=== PATIENT | male | born 2000 | race Caucasian/White ===

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

== ENCOUNTER 2024-05-26 12:58 | Outpatient (AMB) | payer OTHER, SELFPAY ==
--- NOTE | 2024-05-26 13:01 | A.OFFPC_ITS ---
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 Required: No Allergies Penicillins [PENICILLINS] Allergy (Unknown, Verified 05/26/24 13:28) HIVES SEASONAL ALLERGIES Allergy (Unknown, Uncoded 05/26/24 13:28) COUGH, NASAL CONGESTION Medication List - Last Reconciled 05/26/24 by Simba Le CNP albuterol 90 mcg/actuation mcg inhalation mometasone 100 mcg/actuation (Asmanex HFA) 1 inh inhalation BID Tobacco use date assessed: 05/26/24 Dental Screening Dental Screen Date: 05/26/24 Did you have a dental visit in the last 12 months?: Yes Did you have a dental problem in the last 6 months where you did not have access to dental care?: No Was dental information given to patient?: Patient has dentist HPI HPI Comments History of Present Illness Details 23-year-old male presents the establish care. Prior PCP? - [facility] Last office visit/CPE/labs - About a year ago Acute issue(s) - None Medications - Albuterol inhaler 2 puffs every 4 hour s as needed - Asmanex 1 puff twice daily Past Medical History - Asthma Surgical History - Left clavicle repair Family History - Mom: Thyroid disorder Social History - Nonsmoker. Does not vape. Drinks 1 bee r occasionally. Denies recreational drug use - Has been making healthy dietary choice s. Exercises routinely (recently started going to the gym three times weekly. Generally sleep well - Sexually active, in a monogamous relat ionship, no concerns for STDs Health maintenance - Last eye exam was at [facility] i n November 2023 - Last dental visit was in 02/2024 - Last tetanus vaccine unknown; will rev w pediatrics record and update as needed - Up-to-date on the flu vaccine [facility] Medical History (Updated 05/26/24 @ 13:30 by Simba Le CNP) Asthma Surgical History Hx of shoulder surgery Family History (Updated 05/26/24 @ 13:14 by Atiya Solis) Mother Thyroid disorder Social History (Updated 11/04/20 @ 09:23 by Yumiko Cheek RN) Housing: House Are you a primary in home caregiver to a significant other at home: No Do you presently have visiting nurse or other home services: No Alcohol intake: never Patient Tobacco Use Status: Never used Tobacco e-Cigarette/Vaping Use: Never Used Second Hand Smoke Exposure: No service: No Current occupational status: student Current occupation: right handed. Current occupational exposures/hazards: No Cognitive needs: No Hearing needs: No Vision needs: No Questionnaire PHQ-9 Over the last 2 weeks, how often have you been bothered by any of the following problems? 1. Little interest or pleasure in doing things: not at all 2. Feeling down, depressed, or hopeless: not at all 3. Trouble falling or staying asleep, or sleeping too much: not at all 4. Feeling tired or having little energy: not at all 5. Poor appetite or overeating: not at all 6. Feeling bad about yourself - or that you are a failure or have let yourself or your family down: not at all 7. Trouble concentrating on things, such as reading the newspaper or watching television: not at all 8. Moving or speaking so slowly that other people could have noticed. Or the opposite - being so fidgety or restless that you have been moving around a lot more than usual: not at all 9. Thoughts that you would be better off or of hurting yourself in some way: not at all Total score: 0 Depression Screening Interpretation: Negative Depression Screening Done: Yes 17231 - PHQ-9 Billing: Yes Source: Developed by Drs. Ted Matute, Tonie Barraza, Jayson Sibley and colleagues, with an educational alex from [employer]. Thrive Questionnaire Date Thrive assessed: 05/26/24 I am a: Patient What is your living situation today?: I have a steady place to live Within the past 12 months, did the food you bought not last and you didn't have the money to get more?: Never true Within the past 12 months, did you worry whether your food would run out before you got money to buy more?: Never true Do you have trouble paying for medicines?: No Do you have trouble getting transportation to medical appointments?: No Do you have trouble paying your heating and electricity bill?: No Do you have trouble taking care of your child, family member or friend?: No Do you have trouble with day-to-day activities such as bathing, preparing meals, shopping, managing finances, etc.?: No Are you currently unemployed and looking for a job?: No Are you interested in more education?: No Please select the resources that you would like help with: None Currently or been in a relationship where the following occur: No concerns reported THRIVE Score: 0 AUDIT C Alcohol Use Questionnaire (AUDIT-C) 1. How often do you have a drink containing alcohol?: Monthly or less 2. How many drinks containing alcohol do you have on a typical day when you are drinking?: 1 or 2 3. How often do you have six or more drinks on one occasion?: Never Total Score: 1 Score Reviewed/Action Taken: Yes BRIAN-7 AMB Questionnaire BRIAN-7 Date BRIAN - 7 assessed: 05/26/24 Feeling nervous, anxious, or on edge: 0 = Not at all Not being able to stop or control worryin = Not at all Worrying too much about different things: 0 = Not at all Trouble relaxin = Not at all Being so restless that it is hard to sit still: 0 = Not at all Becoming easily annoyed or irritable: 0 = Not at all Feeling afraid as if something awful might happen: 0 = Not at all Total BRIAN-7 score (0-4 normal; 5-9 mild; 10-14 moderate; 15-21 severe): 0 Source: Developed by Drs. Ted Matute, Tonie Barraza, Jayson Sibley and colleagues, with an educational alex from [employer]. BRIAN-7 Assessment Billing BRIAN-7 Assessment Tool: BRIAN-7 Assessment 79005 ACT Questionnaire In the past 4 weeks, how much of the time did your asthma keep you from getting as much done at work, school or at home?: None of the time During the past 4 weeks, how often have you had shortness of breath?: Not at all During the past 4 weeks, how often did your asthma symptoms wake you up at night or earlier than usual in the morning?: Not at all During the past 4 weeks, how often have you had to use your rescue inhaler or nebulizer medication?: Not at all How would you rate your asthma control during the past 4 weeks?: Completely controlled ACT Interpretation: Negative Score: 25 Review of Systems Const Details: Denies chills, Denies fatigue, Denies fever(s), Denies headache(s) and Denies weakness HEENT Denies change in vision, Denies dizziness, Denies headache(s), Denies hearing loss, Denies nasal congestion, Denies sinus pain, Denies sinus pressure and Denies sore throat Card Denies chest pain, Denies lightheadedness, Denies dyspnea and Denies other (palpitations) Resp Denies cough, Denies dyspnea and Denies wheezing GI Denies abdominal pain, Denies melena, Denies hematochezia, Denies change in bowel habits, Denies dyspepsia and Denies nausea Denies hematuria and Denies dysuria Musc Denies abnormal gait, Denies myalgias, Denies arthralgias, Denies numbness and Denies tingling Skin/Breast Denies rash, Denies unusual bruising and Denies wounds Neuro Denies abnormal gait, Denies dizziness, Denies headache(s), Denies memory loss, Denies numbness, Denies Sensory deficit (Neuro), Denies tingling and Denies weakness Psych Denies anxiety, Denies depression and Denies memory loss Endo Denies cold intolerance, Denies fatigue, Denies heat intolerance, Denies polydipsia and Denies polyuria Girish/Lymph Denies easy bleeding and Denies easy bruising Aller/Immun Denies wheezing Physical exam (Primary Care) Vital Signs: Last Vital Signs Temp 99.1 F 05/26/24 13:09 Pulse 99 05/26/24 13:09 Resp 16 05/26/24 13:09 BP 125/73 05/26/24 13:09 Pulse Ox 98 05/26/24 13:09 Oxygen Delivery Method Room Air 05/26/24 13:09 BMI result Body Mass Index 29.7 Tobacco/Smoking Status: Tobacco use Status Tobacco use date assessed 05/26/24 05/26/24 13:12 Patient Tobacco Use Status Never used Tobacco 05/26/24 13:12 e-Cigarette/Vaping Use Never Used 05/26/24 13:12 PHQ-9: PHQ-9 Score PHQ-9: Total score 0 05/26/24 14:52 Depression Screening Interpretation: Negative Thrive Assessment: Date of Thrive Assessment Date Thrive assessed 05/26/24 05/26/24 13:03 Currently or been in a relationship where the following occur: No concerns reported Const Other: General: no acute distress, well developed, alert and awake Nutritional Appearance: well nourished Orientation/consciousness: patient oriented x3 [facility] Head: Yes normocephalic and Yes atraumatic Ears: hearing grossly normal bilaterally and TM's normal bilaterally General nose exam: Normal external nose present and Normal nares present Mouth: Normal oral and palatal mucosa present and moist mucous membranes Teeth and gingiva: dentition normal Throat: Yes oropharynx normal Eyes Pupils: Equal, round and reactive pupils present and Pupil accommodation reflex normal EOM: EOMs intact bilaterally Neck Neck: Yes normal visual inspection, Yes no lymphadenopathy and Yes trachea midline Thyroid: Thyroid normal Carotids: no bruits Lymphatic: no lymphadenopathy noted Chest Chest palpation & inspection: normal inspection of the chest Resp Effort & Inspection: normal respiratory effort Auscultation: clear to auscultation bilaterally Cardio Rate: regular rate Rhythm: regular rhythm Heart sounds: S1 normal heart sound present, S2 normal heart sound present, no gallops, no murmurs and no rubs Bruits: no abdominal aortic bruits and no carotid bruits GI Palpation (GI): No Abdominal aortic bruit present, Soft to palpation, nontender, No hepatosplenomegaly present and No Rebound tenderness present Auscultation: normal bowel sounds General: Yes no CVA tenderness Back/Spine/Pelvis Back: no CVA tenderness Cervical Spine: cervical ROM normal and No Cervical spine tenderness Thoracic/Lumbar Spine: thoraco-lumbar ROM normal, No pain with thoraco-lumbar ROM, No thoracic spinal tenderness and No lumbar spinal tenderness Skin General: warm and dry. Normal skin color. Normal skin turgor Lesions: no lesions Rashes: no rashes Trauma: no lacerations or abrasions Wounds: no wounds Nails: normal Neuro General: patient oriented x3, gait normal and CN's II-XI intact bilaterally Cranial nerves: Yes Equal, round and reactive pupils present Cognition (Neuro): normal cognition Gait exam (Neuro): Normal gait present Motor exam (neuro): 5/5 motor strength present throughout Sensory Exam: No Sensory deficit (Neuro) Deep tendon reflexes (DTR's): Right patellar reflex intensity grade: 2+ and Left patellar reflex intensity grade: 2+ Extrem General: Yes normal to inspection, No edema and No calf tenderness Psych Appearance: grossly normal Affect: normal affect Attitude: cooperative Thought process: Normal thought process present Coding Level of Care Code New Pt Prev Care 18-39yr(48062 Diagnoses Normal physical examination, routine Z00.00 Laboratory tests ordered as part of a complete physical exam (CPE) Z00.00 Asthma J45.909 Additional Codes Asthma Control Questionnaire - ACT Interpretation: Negative ([id number]) BRIAN-7 Assessment Billing - BRIAN-7 Assessment Tool: BRIAN-7 Assessment 69797 ([id number]) PHQ-9 - 15465 - PHQ-9 Billing: Yes ([id number]) Assessment & Plan Assessment & Plan (1) Normal physical examination, routine: Code(s): Z00.00 - Encounter for general adult medical examination without abnormal findings Category: Medical Plan: No significant functional limitation noted. Continue current treatment regimen. Healthy diet and routine exercise encouraged. Perform lab work 2-3 days before next visit. Follow-up for telehealth visit for labs review in 2 weeks. Return sooner with symptoms or concerns. Verbalized understanding and agreed with the plan. (2) Laboratory tests ordered as part of a complete physical exam (CPE): Code(s): Z00.00 - Encounter for general adult medical examination without abnormal findings Category: Medical Plan: Fasting labs ordered as part of a complete physical exam. Advised to fast for at least 10 hours before getting labs drawn. May drink water Verbalized understanding and agreed with treatment plan. (3) Asthma: Code(s): J45.909 - Unspecified asthma, uncomplicated Category: Medical Plan: ACT score is 25 and indicates will control asthma. Continue current treatment regimen. Follow-up as needed. Verbalized understanding and agreed with the plan. Orders: Orders Complete Blood Count Auto Diff Today Z00.00 - Encounter for general adult medical examination without abnormal findings Comprehensive [place]. Panel Fast Today Z00.00 - Encounter for general adult medical examination without abnormal findings TSH reflex Free T4 Today Z00.00 - Encounter for general adult medical examination without abnormal findings Lipid Panel Today Z00.00 - Encounter for general adult medical examination without abnormal findings UA CC w/rflx Micro + Cult Today Z00.00 - Encounter for general adult medical examination without abnormal findings
[2024-05-26 13:09] VITALS: BP 125/73; PULSE 99; RESP 16; TEMP 37.3; O2SAT 98; BMI 29.7
== END 2024-05-26 13:50 | disposition home or self-care (01) ==
PROVIDERS: Visit Provider Nurse Practitioner Family
DX: Z00.00 Encounter for general adult medical examination without abnormal findings (principal); J45.909 Unspecified asthma, uncomplicated

== ENCOUNTER → 2024-05-26 12:58 | Outpatient (BNVA) | payer OTHER, SELFPAY | PROVIDERS: Visit Provider Nurse Practitioner Family | DX: Z00.00 Encounter for general adult medical examination without abnormal findings (principal); J45.909 Unspecified asthma, uncomplicated | CPT/HCPCS: 96127; 96160 ==

== ENCOUNTER 2024-06-01 09:46 | Outpatient (REF) | payer BC, SELFPAY ==
[2024-06-01 10:46] LABS: MANUAL DIFF FLAG NO
[2024-06-01 11:05] LABS: Basophils Percent Auto 0.6 % (0-2); Eosinophils Absolute Auto 0.1 X10*3/uL (0.0-0.4); Eosinophils Percent Auto 1.7 % (0-4); Hematocrit 38.7 % (42.0-52.0); Hemoglobin 13.5 g/dl (14.0-18.0); Imm Gran Abs Auto 0.01 X10*3/uL (0.00-0.03); Imm Gran Pct Auto 0.2 % (0.0-0.4); Lymphocytes Absolute Auto 2.1 X10*3/uL (1.2-4.9); Lymphocytes Percent Auto 39.8 % (20-40); Mean Corpuscular HGB Conc 34.9 g/dl (31.0-36.0); Mean Corpuscular Hemoglobin 31.5 pg (27.0-33.0); Mean Corpuscular Volume 90.2 fL (80.0-98.0); Mean Platelet Volume 9.6 fL (9.4-12.4); Monocytes Absolute Auto 0.5 X10*3/uL (0.1-1.2); Monocytes Percent Auto 8.9 % (2-11); Neutrophils Absolute Auto 2.6 x10*3/uL (2.0-8.3); Neutrophils Percent Auto 48.8 % (45-73); Platelet Count 267 X10*3/uL (160-400); Red Blood Count 4.29 X10*6/uL (4.60-5.80); Red Cell Distribution Width 11.9 % (11.0-16.0); White Blood Count 5.4 X10*3/uL (4.8-10.8)
[2024-06-01 11:11] LABS: Alanine Aminotransferase 28 U/L (0-40); Albumin Level 4.8 g/dL (3.5-5.0); Alkaline Phosphatase 54 U/L (39-117); Anion Gap 12 (12-20); Aspartate Amino Transferase 21 U/L (5-37); Bilirubin Total 0.6 mg/dL (0.0-1.0); Blood Urea Nitrogen 11 mg/dL (9-16); Calcium 9.7 mg/dL (8.4-10.2); Carbon Dioxide 29 mmol/L (22-29); Chloride 105 mmol/L (96-108); Cholesterol 197 mg/dL (<200); Estimated Glomerular Filt Rate > 60; Glucose Fasting 94 mg/dL (60-99); HDL Cholesterol 53 mg/dL (>40); LDL Cholesterol Calculated 120 mg/dL (<100); Potassium 4.1 mmol/L (3.3-5.1); Sodium 142 mmol/L (135-145); Total Protein 7.5 g/dL (6.5-8.0); Triglycerides 122 mg/dL (<150)
[2024-06-01 11:27] LABS: TSH reflex Free T4 0.85 uIU/mL (0.32-4.0)
[2024-06-01 14:16] LABS: Appearance Urine Clear; Color Urine Yellow; Glucose Urine UA Negative (Negative); Leukocyte Esterase Urine Negative (Negative); Nitrite Urine Negative (Negative); PH 6.5 (5.0-9.0); Specific Gravity - Urine >= 1.030 (1.005-1.025); Urine Blood Negative (Negative); Urine Ketones Trace mg/dL (Negative); Urine Protein Trace mg/dL (Neg-Trace)
== END 2024-06-01 09:47 | disposition home or self-care (01) ==
LOC: HO.WFDLDS 09:46
PROVIDERS: Visit Provider Nurse Practitioner Family
DX: Z00.00 Encounter for general adult medical examination without abnormal findings (principal)
CPT/HCPCS: 36415; 80053; 80061; 81003; 84443; 85025

== ENCOUNTER 2024-06-08 12:47 | Outpatient (AMB) | payer BC, SELFPAY ==
--- NOTE | 2024-06-08 12:43 | A.OFFPC_ITS ---
Intake Visit Reasons: Telehealth 2 wks, labs review Intake Note: patient here for telehealth lab review Lotus Notes Administrator Required: No Allergies Penicillins [PENICILLINS] Allergy (Unknown, Verified 06/08/24 12:44) HIVES SEASONAL ALLERGIES Allergy (Unknown, Uncoded 05/26/24 13:28) COUGH, NASAL CONGESTION Tobacco use date assessed: 06/08/24 Dental Screening Dental Screen Date: 06/08/24 Did you have a dental visit in the last 12 months?: Yes Did you have a dental problem in the last 6 months where you did not have access to dental care?: No Was dental information given to patient?: Patient has dentist HPI HPI Comments History of Present Illness Details 23-year-old [facility] of recent lab results. He offers no complaints and denies acute symptoms at this time. [facility] Medical History (Updated 06/08/24 @ 19:03 by Simba Le CNP) Asthma Surgical History Hx of shoulder surgery Family History (Updated 05/26/24 @ 13:14 by Atiya Solis) Mother Thyroid disorder Social History (Updated 11/04/20 @ 09:23 by Yumiko Cheek RN) Housing: House Are you a primary care advocate to a significant other at home: No Do you presently have visiting nurse or other home services: No Alcohol intake: never Patient Tobacco Use Status: Never used Tobacco e-Cigarette/Vaping Use: Never Used Second Hand Smoke Exposure: No service: No Current occupational status: student Current occupation: right handed. Current occupational exposures/hazards: No Cognitive needs: No Hearing needs: No Vision needs: No Questionnaire Thrive Questionnaire Date Thrive assessed: 05/26/24 I am a: Patient What is your living situation today?: I have a steady place to live Within the past 12 months, did the food you bought not last and you didn't have the money to get more?: Never true Within the past 12 months, did you worry whether your food would run out before you got money to buy more?: Never true Do you have trouble paying for medicines?: No Do you have trouble getting transportation to medical appointments?: No Do you have trouble paying your heating and electricity bill?: No Do you have trouble taking care of your child, family member or friend?: No Do you have trouble with day-to-day activities such as bathing, preparing meals, shopping, managing finances, etc.?: No Are you currently unemployed and looking for a job?: No Are you interested in more education?: No Please select the resources that you would like help with: None Currently or been in a relationship where the following occur: No concerns reported THRIVE Score: 0 AUDIT C Alcohol Use Questionnaire (AUDIT-C) 2. How many drinks containing alcohol do you have on a typical day when you are drinking?: 1 or 2 3. How often do you have six or more drinks on one occasion?: Never Total Score: 0 BRIAN-7 AMB Questionnaire BRIAN-7 Date BRIAN - 7 assessed: 05/26/24 Source: Developed by Drs. Ted Matute, Tonie Barraza, Jayson Sibley and colleagues, with an educational alex from [employer]. Review of Systems Const Details: Denies chills, Denies fatigue, Denies fever(s), Denies headache(s) and Denies weakness Cardiac Denies chest pain, Denies claudication, Denies leg edema, Denies lightheadedness, Denies palpitations, Denies dyspnea, Denies dyspnea on exertion, Denies orthopnea and Denies other (Loss of consciousness) Resp Denies cough, Denies excessive phlegm production, Denies dyspnea, Denies dyspnea on exertion, Denies snoring and Denies wheezing Physical exam (Primary Care) Tobacco/Smoking Status: Tobacco use Status Tobacco use date assessed 06/08/24 06/08/24 12:45 Patient Tobacco Use Status Never used Tobacco 06/08/24 12:45 e-Cigarette/Vaping Use Never Used 06/08/24 12:45 Thrive Assessment: Date of Thrive Assessment Date Thrive assessed 05/26/24 06/08/24 12:45 Currently or been in a relationship where the following occur: No concerns reported Const Other: Telehealth visit. No physical exam. Telehealth Telehealth Telehealth Platform: Telephone Location of provider rendering services: practice address Location of patient: address on file Patient Identification confirmed using: Name, : Yes Telehealth method: voice only Patient verbally consented to treatment: Yes Patient verbally consented to billing insurance company: Yes Patient informed of any privacy concerns related to visit: Yes Coding Level of Care Code Tele Est Pt Level 3 (46605) Diagnoses Normocytic anemia D64.9 Elevated LDL cholesterol level E78.00 Time Spent (min) 15 Assessment & Plan Assessment & Plan (1) Normocytic anemia: Code(s): D64.9 - Anemia, unspecified Category: Medical Plan: Recent RBC and H&H are slightly elevated, 4.29, 13.5/38.7 respectively, MCV is normal. Will recheck CBC and will check retic count, iron profile, ferritin level, vitamin B12, folate levels. Advised to perform blood work 2-3 days before his next visit. Follow-up for telehealth visit in 2 months or sooner with symptoms or concerns. Verbalized understanding and agreed with treatment plan. (2) Elevated LDL cholesterol level: Code(s): E78.00 - Pure hypercholesterolemia, unspecified Category: Medical Plan: Recent LDL level is slightly elevated, 120. Until recently, he was eating significant amount of processed foods. He has been making healthy dietary choices. He recently started exercising routinely. Advised to limit foods high in saturated fat and avoid foods high in trans fat. Routine exercise encouraged. Fast for 10-12 hours, may drink water, and perform fasting lipid panel blood work 2-3 days before next visit. Follow-up in 2 months. Verbalized understanding and agreed with the plan. Orders: Orders IRON PROFILE 2 Months D64.9 - Anemia, unspecified Ferritin 2 Months D64.9 - Anemia, unspecified Lipid Panel 2 Months E78.00 - Pure hypercholesterolemia, unspecified Complete Blood Count no Diff 2 Months D64.9 - Anemia, unspecified Vitamin B12 and Folate 2 Months D64.9 - Anemia, unspecified Reticulocyte Count 2 Months D64.9 - Anemia, unspecified
== END 2024-06-08 19:11 | disposition home or self-care (01) ==
LOC: HO.HMCFM 12:47
PROVIDERS: PCP Nurse Practitioner Family; Visit Provider Nurse Practitioner Family
DX: D64.9 Anemia, unspecified (principal); E78.00 Pure hypercholesterolemia, unspecified

== ENCOUNTER → 2024-06-08 12:47 | Outpatient (BNVA) | payer BC, SELFPAY | PROVIDERS: PCP Nurse Practitioner Family; Visit Provider Nurse Practitioner Family ==

== ENCOUNTER 2024-07-21 12:48 | Outpatient (REF) | payer BC, SELFPAY ==
--- OUTSIDE RECORDS SUMMARY | 2024-07-21 13:19 | XMS_ITS | Encounter Summary ---
Author Organization [facility] Address [address] [place] [id number] Phone Care Team Providers Care Vessel Liner Name Role Phone Shawna Ku MD Primary Care Provider [phone] Encounter Details Date Type Department Care Team (Late st Contact Info) Description 06/26/2010 Documentation [facility] [place] [facility] [address] [place] [address] Family Medicine, Physician [address] [place], [place] [id number] Social History Tobacco Use Types Packs/Day Years Used Date Smoking Tobacco: Never Assessed Sex and Gender Information Value Date Recorded Sex Assigned at Male 06/09/2019 10:08 AM EST Legal Sex Male 4:56 PM EDT Gender Identity Male 06/09/2019 10:08 AM EST Sexual Orientation Straight 06/09/2019 10 :08 AM EST documented as of this encounter Plan of Treatment Not on file documented as of this encounter Visit Diagnoses Not on filedocumented in this encounter Care Teams Vessel Liner Relationship Specialty Start Date End Date Shawna Ku MD [address] [place] [address] PCP - General Pediatrics 06/07/23 08/26/23 documented as of this encounter
--- OUTSIDE RECORDS SUMMARY | 2024-07-21 13:19 | XMS_ITS | Clinical Summary ---
Author Organization [facility] Address [address] [place] [address] Phone Care Team Providers Care Lead Caster Helper Name Role Phone Unavailable Primary Care Provider Unavailabl e Allergies Active Allergy Reactions Criticality Noted Date Comments Amoxicillin Rash Low Food 07/02/2021 Shrimp Penicillin G 07/02/2021 Medications triamcinolone 0.1 % creamIndications :Intrinsic eczema Apply topically 2 (two) times a day as needed for rash. To mix 80 gm triamcinolone with 16oz of CeraVe cream and apply BID for 2 weeks and then as needed 80 g 07/02/19 22 Active albuterol HFA 108 (90 Base) MCG/ACT inhalerIndicatio ns:Mild intermittent asthma without complication Inhale 2 puffs every 4 (four) hours as needed for wheezing or shortness of breath. 1 Units 06/07/19 24 Active Mometasone Furoate (Asmanex HFA) 100 MCG/ACT aerosolIndicatio ns:Mild persistent asthma without complication Inhale 1 puff 2 (two) times a day. 39 g 06/07/19 24 Active Active Problems Problem Noted Date Diagnosed Date Acute bilateral low back pain without sciatica 0 09/25/2021 Intrinsic eczema 07/02/2021 Overview (07/02/2021): Dry skin on chest and hands Fluff discussed and ordered Assessment & Plan (07/02/2021 3:25 PM EST): Dry skin on chest and hands Fluff discussed and ordered Wears glasses 06/21/2020 Overview (06/21/2020): Poor vision in left eye. Followed by ophtho Assessment & Plan (06/21/2020 1:48 PM EST): Wears glasses but does not have them today. History of COVID-19 06/10/2020 Overview (07/02/2021): Dx 06/06/2020, has symptoms starting a few days before and had know Covid contact on May 31 2020 Assessment & Plan (06/21/2020 5:31 PM EST): Though pt had covid and was seen in ER 06/10/20 for SOB, chest tightness he did not have fever or ongoing symptoms. He feels mostly that he was anxious. They did do an EKG in the ER that was normal Pt with hx of asthma. Has been taking more albuterol as instructed in ER. Advised to stop and only use if needed for cough etc. Is hoping to start lacrosse next week. Pt to wait for 7-10 days off regular albuterol to make sure he has no ongoing symptoms of SOB or chest tightness. Acne vulgaris 05/16/2018 Overview (08/04/2019): 06/09/19 seen for recurrent pustules behind ears that drained on and off for month. Scarring noted. Minocin prescribed and taken daily for nearly 2 months. Skin is much better per mom and patient. Has not seen dermatology Has used clindamycin lotions for facial acne that has worked well Acne and cysts behind the ear run in the family. Pos family history of scarring To stop minocin for now and call for derm appointment if pustules recur. Assessment & Plan (08/04/2019 6:27 PM EST): 06/09/19 seen for recurrent pustules behind ears that drained on and off for month. Scarring noted. Minocin prescribed and taken daily for nearly 2 months. Skin is much better per mom and patient. Has not seen dermatology Has used clindamycin lotions for facial acne that has worked well Acne and cysts behind the ear run in the family. Pos family history of scarring To stop minocin for now and call for derm appointment if pustules recur. Assessment & Plan (06/09/2019 10:51 AM EST): Will start on minocin 100 mg daily Follow up in 2 months, sooner for worsening Consider dermatology referral if recurrence of pustules (none active today) is continuing Assessment & Plan (05/16/2018 12:07 PM EST): Tretinoin prescribed today. Apply small amount to face every night. Continue (or restart) Clindamycin lotion in the morning. Mild persistent asthma without complication 09/2014 Overview (05/16/2018): Has been on inhaled steroids since about 6 yo. Was followed by Niraj. No longer sees him. Assessment & Plan (12/18/2022 4:31 PM EDT): Flovent prn, albuterol use every few months, as per pt well controlled. Will report any updates. Assessment & Plan (07/02/2021 2:33 PM EST): Under good control with daily flovent 1 puff 2x per day. Also rare albuterol use - sometime prior to exercise Assessment & Plan (06/21/2020 2:57 PM EST): 1 puff 2x per day of QVAR Has been using albuterol 2 puff Q 4 hrs since being seen in the ER 06/10/20as they recommended this. Has not been sleeping well. LUNGS CTA here but given fatigue and ER visit during covid. Will refer to card for evaluation prior to starting lacrosse which is supposed to start next week. Pt is not Assessment & Plan (06/09/2019 9:59 AM EST): Uses albuterol sometimes prior to sports. No oral steroids in years, mostly consistent with QVAR Assessment & Plan (05/16/2018 12:07 PM EST): No ER visits or oral steroid use in the past year. Asthma action plan done. Assessment & Plan (05/10/2017 10:33 AM EST): Under good control with asmanex 1 puff 2x per day and albuterol as needed. Seasonal allergic rhinitis 11/04/2009 Assessment & Plan (06/09/2019 10:07 AM EST): occas zyrtec as needed. Resolved Problems Problem Noted Date Diagnosed Date Resolved Date Family history of alpha 1 an titrypsin deficiency 05/16/2018 06/09/2019 Overview (05/16/2018): significant family history of alpha 1 antitrypson and mom remembers PFT testing of Jeff being described as like emphysema when he was younger Assessment & Plan (05/16/2018 12:09 PM EST): AAT testing ordered. [place]-Schlatter's disease o f right lower extremity 05/10/2017 05/16/2018 Encounters Date Type Department Care Team Description 06/20/2024 Telephone [facility] - [address] [address] Natali Sprague MD medical records from Last 3 Months Immunizations Immunization Administration Dates Next Due DTaP 5 09/12/2007, 4,02/16/2003,12/25,2002 H1N1 05/09/2009,04/09/2009 HPV Vaccine 9 Valent 05/10/2017,05/04/2016 Hep A, ped/adol 03/04/2015,01/19/2014 Hep B, ped/adol 06/29/2003,02/16/2003,2002 Hib (HbOC) 11/28/2003 Hib (PRP-T) 02/16/2003,2002,2002 IPV 09/12/2007, 4,2002,10/13 Influenza Split 04/19/2012,03/13/2011,02/25/2010 Influenza, injectable, quadr ivalent, preservative free 02/19/2023,02/20/2022,03/19/2021,02/15,03/14/2019,03/03/2018,02/16/2017 ,02/12/2016,03/04/2015,03/15/2014,04/01 Influenza, injectable, trivalent 009,03/06/2008,05/26/2007,03/21 MMR 09/12/2007,08/29/2003 Meningococcal B Trumenba 12/24/2020,06/21/2020 Meningococcal Conj (Menactra) MCV4P 06/09/2019,0 01/19/2014 Pneumococcal Conjugate 08/25/2004,2002,2002,10/13 Pneumococcal Polysaccharide 12/18/2022 Tdap 01/19/2014 Varicella 09/12/2007,08/29/2003 Family History Medical History Relation Name Comments Heart disease (Premature) Father Guido Hyperlipidemia Father Guido Hypertension Father Guido Thyroid disease Mother Yolanda Heart disease (Premature) Mother's Sister Hyperlipidemia Mother's Sister Heart disease (Premature) Paternal Grandfather Hyperlipidemia Paternal Grandfather Asthma Sister Relation Name Status Comments Father Guido Alive Father: Neurofi bromatosis Mother Yolanda Alive Mother: Alive a nd well Mother's Sister Other No family histo ry of Deafness, Family history of Depression, Family history of ADD/ADHD, Family history of Cancer, lung, No family history of Obesity, Family history of Asthma, No family history of *Heart Disease, No family history of *Thrombophilia, No family history of *CVA/Stroke, No family history of Diabetes mellitus, Family history of Migraines, Family history of Hyperlipidemia Paternal Grandfather Sister Social History Tobacco Use Types Packs/Day Years Used Date Smoking Tobacco: Never Smokeless Tobacco: Never Tobacco Cessation:Counseling Given: Yes Comments:Never smoker Alcohol Use Standard Drinks/Week Comments No 0 (1 standard drink = 0.6 oz pur e alcohol) Hunger/Food Answer Date Recorded In the last 12 months, did y ou or your family ever eat less than you felt you should because there wasn't enough money for food? No 12/18/2022 Stable Housing Answer Date Recorded Are you worried that in the next 2 months you may not have stable housing? No 12/18/2022 Transportation Concerns Answer Date Rec orded In the last 12 months, have you or your family ever had to go without healthcare because you didn't have a way to get there? No 12/18/2022 Hazards in Home Answer Date Recorded Think about the place you li ve. Do you have problems with any of the following? Pests (mice or roaches), mold, no/not working smoke detectors, water leaks, no window guards. No 2022 Financing Utilities Answer Date Recorde d In the last 12 months, has t he electric, gas, oil, or water company threatened to shut off your services in your home? No 12/18/2022 Safety at Home Answer Date Recorded Are you or your family worried about feeling saf e in your home? No 12/18/2022 Outside Support Answer Date Recorded Do you feel that you need mo re support from other people or programs to help you care for yourself or your family? No 12/18/2022 Understanding Health Concerns Answer Da te Recorded Do you need help understandi ng your or your child's healthcare needs (diagnosis, medications, plan, etc.)? No 12/18/2022 Financing Health Concerns Answer Date R ecorded In the last 12 months, was t here a time when your child needed to see a doctor or get medications or supplies but could not because of cost? No 12/18/2022 Missing School or Work Answer Date Dimas rded Did you or your child miss s chool or work because of a health problem that could have been avoided? No 12/18/2022 Sex and Gender Information Value Date Recorded Sex Assigned at Male 06/09/2019 10:08 AM EST Legal Sex Male 4:56 PM EDT Gender Identity Male 06/09/2019 10:08 AM EST Sexual Orientation Straight 06/09/2019 10 :08 AM EST Last Filed Vital Signs Vital Sign Reading Time Taken Comments Blood Pressure 117/80 06/17/2023 2:43 PM EST Pulse 109 06/17/2023 2:43 PM EST Temperature 37.3 ??C (99.1 ??F) 06/17/2023 2:43 PM ES T Respiratory Rate - - Oxygen Saturation - - Inhaled Oxygen Concentration - - Weight 106 kg (233 lb) 06/17/2023 2:43 PM EST Height 186.7 cm (6' 1.5 ) 12/18/2022 2:40 PM EDT Body Mass Index 30.32 12/18/2022 2:40 PM EDT Plan of Treatment Health Maintenance Due Date Last Done Comments DTaP,Tdap,and Td Vaccines (7 - Td or Tdap) 01/20/2024 01/19/2014, 09/12/2007, 02/13/2004, Additional history exists COVID-19 Vaccine (4 - 2023-2 5 season) 2024 06/01/2021, 10/17/2020, 09/26/2020 Hepatitis B Vaccines Completed 06/29/2003, 02/16/2003, 2002 HIB Vaccines Completed 11/28/2003, 01/29, 2002, Additional history exists IPV Vaccines Completed 09/12/2007, 06/02, 2002, Additional history exists MMR Vaccines Completed 09/12/2007, 08/29/2003 Varicella Vaccines Completed 09/12/2007, 08/29/2003 Hepatitis A Vaccines Completed 03/04/2015, 01/20/20 14 HPV Vaccines Completed 05/10/2017, 05/04/2016 Meningococcal Vaccine Completed 06/09/2019, 014 Men B Vaccine Completed 12/24/2020, 06/21/2020 Pneumococcal Vaccine Completed 12/18/2022, 08/25/2004, 02/16/2003, Additional history exists Influenza Vaccines Completed 02/17/2024, 0 02/19/2023, 02/20/2022, Additional history exists Insurance PUBLIC DIRECT
--- OUTSIDE RECORDS SUMMARY | 2024-07-21 13:19 | XMS_ITS | Encounter Summary ---
Author Organization [facility] Address [address] [place] [address] Phone Care Team Providers Care Funeral Assistant Name Role Phone Shawna Ku MD Primary Care Provider [phone] Encounter Details Date Type Department Care Team (Late st Contact Info) Description 01/14/2017 Conversion Encounter [facility] [place] [address] [place] [address] Social History Tobacco Use Types Packs/Day Years Used Date Smoking Tobacco: Never Comments:Never smoker Sex and Gender Information Value Date Recorded Sex Assigned at Male 06/09/2019 10:08 AM EST Legal Sex Male 4:56 PM EDT Gender Identity Male 06/09/2019 10:08 AM EST Sexual Orientation Straight 06/09/2019 10 :08 AM EST documented as of this encounter Plan of Treatment Not on file documented as of this encounter Visit Diagnoses Not on filedocumented in this encounter Care Teams Funeral Assistant Relationship Specialty Start Date End Date Shawna Ku MD [address] [place] [address] PCP - General Pediatrics 06/07/23 08/26/23 documented as of this encounter
[2024-07-21 14:06] LABS: Hematocrit 39.1 % (42.0-52.0); Hemoglobin 13.8 g/dl (14.0-18.0); Mean Corpuscular HGB Conc 35.3 g/dl (31.0-36.0); Mean Corpuscular Hemoglobin 32.1 pg (27.0-33.0); Mean Corpuscular Volume 90.9 fL (80.0-98.0); Mean Platelet Volume 9.7 fL (9.4-12.4); Platelet Count 276 X10*3/uL (160-400); Red Cell Distribution Width 11.9 % (11.0-16.0); Retic HGB Equivalent 36.4 pg (30.0-35.0); Reticulocyte Percent 1.1 % (0.5-1.8); Reticulocytes Absolute 0.049 X10*6/uL (0.026-0.095); White Blood Count 5.3 X10*3/uL (4.8-10.8)
[2024-07-21 14:37] LABS: Cholesterol 197 mg/dL (<200); HDL Cholesterol 49 mg/dL (>40); Iron 135 mcg/dL (45-160); LDL Cholesterol Calculated 129 mg/dL (<100); Percent Iron Saturation 50 % (15-50); Total Iron Binding Capacity 269 mcg/dL (228-428); Triglycerides 97 mg/dL (<150); Unsaturated Iron Binding 134 ug/dL
[2024-07-21 14:53] LABS: Ferritin 283 ng/mL (20-250)
[2024-07-21 15:08] LABS: Folate 12.9 ng/mL (> or = 4.0); Vitamin B12 425 pg/mL (200-900)
== END 2024-07-21 12:49 | disposition home or self-care (01) ==
LOC: HO.WFDLDS 12:48
PROVIDERS: Visit Provider Nurse Practitioner Family
DX: D64.9 Anemia, unspecified (principal); E78.00 Pure hypercholesterolemia, unspecified
CPT/HCPCS: 36415; 80061; 82607; 82728; 82746; 83540; 85027; 85045

== ENCOUNTER 2024-08-08 14:08 | Outpatient (AMB) | payer BC, SELFPAY ==
--- NOTE | 2024-08-08 14:05 | A.OFFPC_ITS ---
Intake Visit Reasons: Telehealth 2-3 Mnths F/U Lab Intake Note: [facility] Washery Boss Required: No Allergies Penicillins [PENICILLINS] Allergy (Unknown, Verified 08/08/24 14:06) HIVES SEASONAL ALLERGIES Allergy (Unknown, Uncoded 05/26/24 13:28) COUGH, NASAL CONGESTION Tobacco use date assessed: 08/08/24 Dental Screening Dental Screen Date: 08/08/24 Did you have a dental visit in the last 12 months?: Yes Did you have a dental problem in the last 6 months where you did not have access to dental care?: No Was dental information given to patient?: Patient has dentist HPI HPI Comments History of Present Illness Details 23-year-old male [facility] lab results. He has been eating healthier and eating minimal fast foods. He has been running routinely. 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 He offers no complaints and denies acute symptoms at this time. [facility] Medical History (Updated 06/08/24 @ 19:03 by Simba Le CNP) Asthma Surgical History Hx of shoulder surgery Family History (Updated 05/26/24 @ 13:14 by Atiya Solis MA) Mother Thyroid disorder Social History (Updated 11/04/20 @ 09:23 by Yumiko Duque RN) Housing: House Are you a primary child daycare worker to a significant other at home: No Do you presently have visiting nurse or other home services: No Alcohol intake: never Patient Tobacco Use Status: Never used Tobacco e-Cigarette/Vaping Use: Never Used Second Hand Smoke Exposure: No service: No Current occupational status: student Current occupation: right handed. Current occupational exposures/hazards: No Cognitive needs: No Hearing needs: No Vision needs: No Questionnaire Thrive Questionnaire Date Thrive assessed: 05/26/24 BRIAN-7 AMB Questionnaire BRIAN-7 Date BRIAN - 7 assessed: 05/26/24 Source: Developed by Drs. Ted Matute, Tonie Barraza, Jayson Sibley and colleagues, with an educational alex from [employer]. Review of Systems Const Details: Denies chills, Denies fatigue, Denies fever(s), Denies headache(s) and Denies weakness Cardiac Denies chest pain, Denies claudication, Denies leg edema, Denies lightheadedness, Denies palpitations, Denies dyspnea, Denies dyspnea on exertion, Denies orthopnea and Denies other (Loss of consciousness) Resp Denies cough, Denies excessive phlegm production, Denies dyspnea, Denies dyspnea on exertion, Denies snoring and Denies wheezing Physical exam (Primary Care) Tobacco/Smoking Status: Tobacco use Status Tobacco use date assessed 08/08/24 08/08/24 14:08 Patient Tobacco Use Status Never used Tobacco 08/08/24 14:08 e-Cigarette/Vaping Use Never Used 08/08/24 14:08 Thrive Assessment: Date of Thrive Assessment Date Thrive assessed 05/26/24 08/08/24 14:08 Const Other: Alert and oriented x3 Telehealth Telehealth Telehealth Platform: Telephone Location of provider rendering services: practice address Location of patient: address on file Patient Identification confirmed using: Name, : Yes Telehealth method: voice only Patient verbally consented to treatment: Yes Patient verbally consented to billing insurance company: Yes Patient informed of any privacy concerns related to visit: Yes Coding Level of Care Code Est Pt Level 3 (66702) Diagnoses Elevated LDL cholesterol level E78.00 Normocytic anemia D64.9 Time Spent (min) 10 Assessment & Plan Assessment & Plan (1) Elevated LDL cholesterol level: Code(s): E78.00 - Pure hypercholesterolemia, unspecified Category: Medical Plan: Recent LDL level is slightly elevated, 129 from 120. Triglycerides, total cholesterol, and HDL levels are normal. Advised to limit foods high in saturated fat and avoid foods high in trans fat. Routine exercise encouraged. Fast for 10-12 hours, may drink water, and perform fasting lipid panel blood work 2-3 days before next visit. Follow-up for telehealth visit in 3 months or sooner with symptoms or concerns. Verbalized understanding and agreed with treatment plan. (2) Normocytic anemia: Code(s): D64.9 - Anemia, unspecified Category: Medical Plan: Recent RBC, and H&H levels slightly low, 4.30 and 13.8/39.1 respectively. Iron profile, vitamin B12 med folate levels are normal. Ferritin level is slightly elevated, 283. No acute symptoms at this time. Will monitor CBC periodically or with symptoms or concerns. Verbalized understanding and agreed with the plan. Orders: Orders Lipid Panel 3 Months E78.00 - Pure hypercholesterolemia, unspecified
--- OUTSIDE RECORDS SUMMARY | 2024-08-08 17:24 | XMS_ITS | Encounter Summary ---
Author Organization [facility] Address [address] [place] [address] Phone Care Team Providers Care Head Silverman Name Role Phone Shawna Ku MD Primary Care Provider [phone] Encounter Details Date Type Department Care Team (Late st Contact Info) Description 06/26/2010 Documentation [facility] [place] Family Medicine [address] [place] [address] Family Medicine, Physician [address] [place], [place] [id number] Social History Tobacco Use Types Packs/Day Years [...] on filedocumented in this encounter Care Teams Head Silverman Relationship Specialty Start Date End Date Shawna Ku MD [address] [place] [address] PCP - General Pediatrics 06/07/23 08/26/23 documented as of this encounter
--- OUTSIDE RECORDS SUMMARY | 2024-08-08 17:24 | XMS_ITS | Encounter Summary ---
Author Organization [facility] Address [address] [place] [address] Phone Care Team Providers Care Physical Instructor Name Role Phone Shawna Ku MD Primary Care Provider [phone] Encounter Details Date Type Department Care Team (Late st Contact Info) Description 01/14/2017 Conversion Encounter [facility] [place] [address] [place] [address] Social History Tobacco Use Types Packs/Day Years [...] on filedocumented in this encounter Care Teams Physical Instructor Relationship Specialty Start Date End Date Shawna Ku MD [address] [place] [address] PCP - General Pediatrics 06/07/23 08/26/23 documented as of this encounter
--- OUTSIDE RECORDS SUMMARY | 2024-08-08 17:24 | XMS_ITS | Clinical Summary ---
Author Organization [facility] Address [address] [place] [address] Phone Care Team Providers Care Market Research Specialist Name Role Phone Unavailable Primary Care Provider [...] (05/16/2018 12:09 PM EST): AAT testing ordered. [place]-Schlatter's disease o f right lower extremity 05/10/2017 05/16/2018 Encounters Date Type Department Care Team Description 06/20/2024 Telephone [facility] - [address] [address] Natali Sprague MD medical records [...]
== END 2024-08-08 15:32 | disposition home or self-care (01) ==
LOC: HO.HMCFM 14:08
PROVIDERS: PCP Nurse Practitioner Family; Visit Provider Nurse Practitioner Family
DX: E78.00 Pure hypercholesterolemia, unspecified (principal); D64.9 Anemia, unspecified

== ENCOUNTER 2024-11-08 10:02 | Outpatient (REF) | payer BC, SELFPAY ==
--- OUTSIDE RECORDS SUMMARY | 2024-11-08 11:18 | XMS_ITS | Encounter Summary ---
Author Organization [facility] Address [address] [place] [address] Phone Care Team Providers Care Garbage Collector Supervisor Name Role Phone Shawna Ku MD Primary Care Provider [phone] Encounter Details Date Type Department Care Team (Late st Contact Info) Description 06/26/2010 Documentation [facility] [place] Family Medicine [address] [place] [address] Family Medicine, Physician [address] [place], [place] [id number] Social History Tobacco Use Types Packs/Day Years [...] on filedocumented in this encounter Care Teams Garbage Collector Supervisor Relationship Specialty Start Date End Date Shawna Ku MD [address] [place] [address] PCP - General Pediatrics 06/07/23 08/26/23 documented as of this encounter
[2024-11-08 11:53] LABS: Cholesterol 195 mg/dL (<200); HDL Cholesterol 50 mg/dL (>40); LDL Cholesterol Calculated 124 mg/dL (<100); Triglycerides 105 mg/dL (<150)
== END 2024-11-08 10:03 | disposition home or self-care (01) ==
LOC: HO.WFDLDS 10:02
PROVIDERS: Visit Provider Nurse Practitioner Family
DX: E78.00 Pure hypercholesterolemia, unspecified (principal)
CPT/HCPCS: 36415; 80061

== ENCOUNTER 2024-11-13 14:36 | Outpatient (AMB) | payer BC, SELFPAY ==
--- NOTE | 2024-11-13 14:34 | A.OFFPC_ITS ---
Intake Visit Reasons: Telehealth 2-3 Mnths F/U Lab Intake Note: patient here for 2-3 telehealth follow up for labs Spray Painting Machine Operator Required: No Allergies Penicillins [PENICILLINS] Allergy (Unknown, Verified 11/13/24 14:34) HIVES SEASONAL ALLERGIES Allergy (Unknown, Uncoded 05/26/24 13:28) COUGH, NASAL CONGESTION Tobacco use date assessed: 11/13/24 Dental Screening Dental Screen Date: 11/13/24 Did you have a dental visit in the last 12 months?: Yes Did you have a dental problem in the last 6 months where you did not have access to dental care?: No Was dental information given to patient?: Patient has dentist HPI HPI Comments History of Present Illness Details 24-year-old male [facility] lab results. He admits to making healthy dietary choices and exercising routinely. He offers no complaints and denies acute symptoms at this time. [facility] Medical History (Updated 06/08/24 @ 19:03 by Simba Le CNP) Asthma Surgical History Hx of shoulder surgery Family History (Updated 05/26/24 @ 13:14 by Atiya Solis MA) Mother Thyroid disorder Social History (Updated 11/04/20 @ 09:23 by Yumiko Duque RN) Housing: House Are you a primary respite care provider to a significant other at home: No Do you presently have visiting nurse or other home services: No Alcohol intake: never Patient Tobacco Use Status: Never used Tobacco e-Cigarette/Vaping Use: Never Used Second Hand Smoke Exposure: No service: No Current occupational status: student Current occupation: right handed. Current occupational exposures/hazards: No Cognitive needs: No Hearing needs: No Vision needs: No Questionnaire Thrive Questionnaire Date Thrive assessed: 05/26/24 BRIAN-7 AMB Questionnaire BRIAN-7 Date BRIAN - 7 assessed: 05/26/24 Source: Developed by Drs. Ted Matute, Tonie Barraza, Jayson Sibley and colleagues, with an educational alex from [employer]. Review of Systems Const Details: Denies chills, Denies fatigue, Denies fever(s), Denies headache(s) and Denies weakness Cardiac Denies chest pain, Denies claudication, Denies leg edema, Denies lightheadedness, Denies palpitations, Denies dyspnea, Denies dyspnea on exertion, Denies orthopnea and Denies other (Loss of consciousness) Resp Denies cough, Denies excessive phlegm production, Denies dyspnea, Denies dyspnea on exertion, Denies snoring and Denies wheezing Physical exam (Primary Care) Tobacco/Smoking Status: Tobacco use Status Tobacco use date assessed 11/13/24 11/13/24 14:36 Patient Tobacco Use Status Never used Tobacco 11/13/24 14:36 e-Cigarette/Vaping Use Never Used 11/13/24 14:36 Thrive Assessment: Date of Thrive Assessment Date Thrive assessed 05/26/24 11/13/24 14:36 Const Other: Patient is alert and oriented x3 Telehealth Telehealth Telehealth Platform: Telephone Location of provider rendering services: practice address Location of patient: address on file Patient Identification confirmed using: Name, : Yes Telehealth method: voice only Patient verbally consented to treatment: Yes Patient verbally consented to billing insurance company: Yes Patient informed of any privacy concerns related to visit: Yes Coding Level of Care Code Tele Est Pt Level 3 (62484) Diagnoses Elevated LDL cholesterol level E78.00 Time Spent (min) 10 Assessment & Plan Assessment & Plan (1) Elevated LDL cholesterol level: Code(s): E78.00 - Pure hypercholesterolemia, unspecified Category: Medical Plan: Recent LDL level is elevated, 124. Previous level was 129. Triglycerides, total cholesterol, and HDL levels are normal. Advised to limit foods high in saturated fat and avoid foods high in trans fat. Routine exercise encouraged. Fast for 10-12 hours, may drink water, and perform lipid panel blood work 2-3 days before next visit. Follow-up for an extended physical exam on/after 05/26/2025. Return sooner with symptoms or concerns. Verbalized understanding and agreed with the treatment plan. Orders: Orders Lipid Panel 6 Months E78.00 - Pure hypercholesterolemia, unspecified
--- OUTSIDE RECORDS SUMMARY | 2024-11-13 16:20 | XMS_ITS | Encounter Summary ---
Author Organization [facility] Address [address] [place] [id number] Phone Care Team Providers Care Goldsmith Apprentice Name Role Phone Shawna Ku MD Primary Care Provider [phone] Encounter Details Date Type Department Care Team (Late st Contact Info) Description 06/26/2010 Documentation [facility] [place] Family Medicine [address] [place] [address] Family Medicine, Physician [address] [place], [place] [phone] Social History Tobacco Use Types Packs/Day Years [...] on filedocumented in this encounter Care Teams Goldsmith Apprentice Relationship Specialty Start Date End Date Shawna Ku MD [address] [place] [address] PCP - General Pediatrics 06/07/23 08/26/23 documented as of this encounter
== END 2024-11-13 15:18 | disposition home or self-care (01) ==
LOC: HO.HMCFM 14:36
PROVIDERS: PCP Nurse Practitioner Family; Visit Provider Nurse Practitioner Family
DX: E78.00 Pure hypercholesterolemia, unspecified (principal)

== ENCOUNTER → 2024-11-13 14:36 | Outpatient (BNVA) | payer BC, SELFPAY | PROVIDERS: PCP Nurse Practitioner Family; Visit Provider Nurse Practitioner Family | DX: E78.00 Pure hypercholesterolemia, unspecified (principal) | CPT/HCPCS: 98966 ==

== ENCOUNTER 2025-05-11 10:34 | Outpatient (AMB) | payer BC, SELFPAY ==
--- NOTE | 2025-05-11 10:35 | A.OFFPC_ITS ---
Vital Signs 05/11/25 10:40 Height 6 ft 2 in Weight 211 lb BMI 27.1 BP 110/76 Blood Pressure Location Lt brachial Position Sitting Respiration 16 Pulse 76 Pulse Source Pulse Oximeter Temp 97.8 F Temp Source Temporal Artery Scan Pulse Oximetry (%) 98 Oxygen Delivery Method Room Air Intake Visit Reasons: Establish care-new patient Central Processing Tech Required: No Accompanied by: Self / Same As Patient Allergies Penicillins (PENICILLINS) Allergy (Unknown, Verified 05/11/25 10:36) HIVES SEASONAL ALLERGIES Allergy (Unknown, Uncoded 05/26/24 13:28) COUGH, NASAL CONGESTION Medication List - Last Reconciled 05/11/25 by Nael Ness MD albuterol sulfate 90 mcg/actuation 2 puffs inhalation Q4-6H PRN cetirizine (Zyrtec) 10 mg PO DAILY PRN creatine monohydrate mg PO mometasone 100 mcg/actuation (Asmanex HFA) 1 inh inhalation Q12H Tobacco use date assessed: 11/13/24 Dental Screening Dental Screen Date: 11/13/24 Did you have a dental visit in the last 12 months?: Yes Did you have a dental problem in the last 6 months where you did not have access to dental care?: No Was dental information given to patient?: Patient has dentist HPI HPI Comments History of Present Illness Details History of Present Illness The patient is a 24 year old male presenting for a yearly physical and to discuss recent lab results. The patient has a history of lung issues since childhood, including a collapsed lung from bacterial pneumonia, but has never been formally diagnosed with asthma. He is prescribed an albuterol inhaler as needed, which he rarely uses, and Asthmanex, which he takes every morning. He recently underwent spirometry, but the results are not available. Recent lab work showed an LDL cholesterol of 124 mg/dL. 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 A recent tepnv-ra-nake urinalysis showed trace blood, which the patient attributes to dehydration from increased exercise and creatine use. He denies any gross hematuria, penile discharge, fevers, chills, or dysuria. Past medical history is significant for a fractured clavicle from a sledding accident. He also had his wrist reset in the past but denies any formal surgeries. He takes cetirizine most mornings for allergies. Medical History: - History of pneumothorax secondary to b acterial pneumonia as a child. - History of clavicle fracture from a sl edding accident. - History of wrist reset, non-surgical. - Allergic rhinitis. - Depression: Denied. Surgical History: - Denies any past surgeries. Medications: - Albuterol inhaler, as needed for lung issues. - Asthmanex, taken every morning. - Cetirizine (Zyrtec), taken most mornin gs for allergies. Family History: - Denies family history of heart disease , diabetes, or cancers. Diagnostic Results: - Labs: Recent labs show good counts and electrolytes. - Labs: LDL cholesterol is 124 mg/dL. - Labs: Bvtie-cs-mkmm urinalysis showed trace blood. - Imaging: Chest X-ray is clean. - Tests: Spirometry was performed two da ys ago; results are pending. Social History - Alcohol use: Denies regular alcohol us e; reports last having one beer in February. - Illicit drug use: Denies use of mariju fela, cocaine, or heroin. - Tobacco use: Denies smoking. - Exercise: Reports working out frequent ly and has started taking creatine. - Diet: Has improved his diet, resulting in significant weight loss from a previous high of 250 lbs. [facility] Medical History (Updated 05/11/25 @ 11:02 by Nael Ness MD) Hematuria Asthma Surgical History Hx of shoulder surgery Family History (Updated 05/26/24 @ 13:14 by MACARENA Bentley) Mother Thyroid disorder Social History (Updated 11/04/20 @ 09:23 by Yumiko Duque RN) Housing: House Are you a primary animal care attendant to a significant other at home: No Do you presently have visiting nurse or other home services: No Alcohol intake: never Patient Tobacco Use Status: Never used Tobacco e-Cigarette/Vaping Use: Never Used Second Hand Smoke Exposure: No service: No Current occupational status: student 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 1. Little interest or pleasure in doing things: not at all 2. Feeling down, depressed, or hopeless: not at all 3. Trouble falling or staying asleep, or sleeping too much: not at all 4. Feeling tired or having little energy: not at all 5. Poor appetite or overeating: not at all 6. Feeling bad about yourself - or that you are a failure or have let yourself or your family down: not at all 7. Trouble concentrating on things, such as reading the newspaper or watching television: not at all 8. Moving or speaking so slowly that other people could have noticed. Or the opposite - being so fidgety or restless that you have been moving around a lot more than usual: not at all 9. Thoughts that you would be better off or of hurting yourself in some way: not at all Total score: 0 Depression Screening Interpretation: Negative Depression Screening Done: Yes Source: Developed by Drs. Ted Matute, Tonie Barraza, Jayson Sibley and colleagues, with an educational alex from [employer]. Thrive Questionnaire Date Thrive assessed: 05/11/25 I am a: Patient What is your living situation today?: I have a steady place to live Within the past 12 months, did the food you bought not last and you didn't have the money to get more?: Never true Within the past 12 months, did you worry whether your food would run out before you got money to buy more?: Never true Do you have trouble paying for medicines?: No Do you have trouble getting transportation to medical appointments?: No Do you have trouble paying your heating and electricity bill?: No Do you have trouble taking care of your child, family member or friend?: No Do you have trouble with day-to-day activities such as bathing, preparing meals, shopping, managing finances, etc.?: No Are you currently unemployed and looking for a job?: No Are you interested in more education?: No THRIVE Score: 0 AUDIT C Alcohol Use Questionnaire (AUDIT-C) 1. How often do you have a drink containing alcohol?: Monthly or less 2. How many drinks containing alcohol do you have on a typical day when you are drinking?: 1 or 2 3. How often do you have six or more drinks on one occasion?: Never Total Score: 1 Score Reviewed/Action Taken: Yes BRIAN-7 AMB Questionnaire BRIAN-7 Date BRIAN - 7 assessed: 05/11/25 Feeling nervous, anxious, or on edge: 0 = Not at all Not being able to stop or control worryin = Not at all Worrying too much about different things: 0 = Not at all Trouble relaxin = Not at all Being so restless that it is hard to sit still: 0 = Not at all Becoming easily annoyed or irritable: 0 = Not at all Feeling afraid as if something awful might happen: 0 = Not at all Total BRIAN-7 score (0-4 normal; 5-9 mild; 10-14 moderate; 15-21 severe): 0 Source: Developed by Drs. Ted Matute, Tonie Barraza, Jayson Sibley and colleagues, with an educational alex from [employer]. Review of Systems Narrative Review of Systems - Genitourinary: Reports history of trace blood in urine. Denies gross hematuria, dysuria, fevers, chills, or penile discharge. - Psychiatric: Denies feeling depressed or having a loss of interest or pleasure in activities. - Respiratory: Reports a history of lung issues and uses inhalers. Denies current symptoms. All systems reviewed & are unremarkable except as reviewed in HPI and above Physical exam (Primary Care) Vital Signs: Last Vital Signs Temp 97.8 F 05/11/25 10:40 Pulse 76 05/11/25 10:40 Resp 16 05/11/25 10:40 BP 110/76 05/11/25 10:40 Pulse Ox 98 05/11/25 10:40 Oxygen Delivery Method Room Air 05/11/25 10:40 BMI result Body Mass Index 27.1 Tobacco/Smoking Status: Tobacco use Status Tobacco use date assessed 11/13/24 05/11/25 10:36 Patient Tobacco Use Status Never used Tobacco 05/11/25 10:36 e-Cigarette/Vaping Use Never Used 05/11/25 10:36 PHQ-9: PHQ-9 Score PHQ-9: Total score 0 05/11/25 10:51 Depression Screening Interpretation: Negative Thrive Assessment: Date of Thrive Assessment Date Thrive assessed 05/11/25 05/11/25 10:36 Narrative Physical Exam General: +Alert and oriented, Well nourished, No acute distress. Eye: Pupils are equal, round and reactive to light, Intact accommodation, Extraocular movements are intact, Normal conjunctiva, Vision unchanged. HENT: Normocephalic, Atraumatic, Tympanic membranes are clear, Normal hearing, Oral mucosa is moist, No pharyngeal erythema, Ear canals patent. Respiratory: Lungs CTA bilaterally, No wheeze, Respirations are non-labored. Cardiovascular: Regular rate, Regular rhythm, S1 auscultated, S2 auscultated, No murmur, Good pulses equal in all extremities, Normal peripheral perfusion, No edema. Gastrointestinal: Soft, Non-tender, Non-distended, Normal bowel sounds, No organomegaly. Musculoskeletal: Normal range of motion, Normal strength, No tenderness, No swelling, No deformity, Normal gait. Integumentary: Warm, Dry, [place], Intact. Neurologic: Alert, Oriented, Normal sensory, Normal motor function, No focal defects, Cranial Nerves II-XII are grossly intact, Normal deep tendon reflexes. Psychiatric: Cooperative, Appropriate mood & affect, Normal judgment. Coding Level of Care Code Est Pt Prev Care [id number]([id number]) Diagnoses Asthma, unspecified asthma severity, unspecified whether complicated, unspecified whether persistent J45.909 Asthma severity: unspecified severity Asthma persistence: unspecified Asthma complication type: unspecified Elevated LDL cholesterol level E78.00 Hematuria, unspecified type R31.9 Hematuria type: unspecified type Assessment & Plan Assessment & Plan (1) Asthma: Comment: - The patient uses albuterol and Asthmanex for presumptive asthma but has never had formal PFTs for diagnosis. - He recently had spirometry, and we will await those results. - He will continue his current inhaler regimen, and refills will be provided as needed. Code(s): J45.909 - Unspecified asthma, uncomplicated Category: Medical Qualifiers: Asthma severity: unspecified severity Asthma persistence: unspecified Asthma complication type: unspecified Qualified Code(s): J45.909 - Unspecified asthma, uncomplicated (2) Elevated LDL cholesterol level: Comment: - The patient's LDL cholesterol is elevated at 124 mg/dL. - Given his young age, no medication is indicated at this time. - The patient is advised to manage this with dietary modifications, including reducing processed foods, butter, cheese, and red meats. - His cholesterol will be monitored annually. Code(s): E78.00 - Pure hypercholesterolemia, unspecified Category: Medical (3) Hematuria: Comment: - A recent uscqq-oz-vmvu test showed trace blood, which is a concern. - The patient attributes this to dehydration. - A formal urinalysis will be ordered today to confirm the finding. - If blood is present, a referral to urology will be made to rule out causes such as kidney stones or other bladder pathology. Code(s): R31.9 - Hematuria, unspecified Category: Medical Qualifiers: Hematuria type: unspecified type Qualified Code(s): R31.9 - Hematuria, unspecified Plan: Health Maintenance: - Immunizations: Patient has received the flu shot and is due for the Hepatitis B vaccine series. - Screening: Will order screening labs for diabetes and thyroid function. - Diet and Lifestyle: Discussed dietary changes to manage elevated LDL cholesterol, including reducing processed foods, butter, cheese, and red meat. - Follow-up: Advised to return for an annual physical in one year. Patient was informed and verbally consented to the use of an ambient scribe for clinic note documentation during this visit. Vital signs reviewed. Comprehensive history, review of systems, and physical exam completed. Medications, allergies, and problem list reviewed and updated. Counseling provided on nutrition, regular exercise, sleep hygiene, and moderation of alcohol use. Discussed age-appropriate screenings (mammogram, colonoscopy, Pap, bone density) and immunizations (flu, COVID, shingles, Tdap). Screened for depression, fall risk, and home safety; no current concerns. Discussed stress management, dental and vision care, and importance of ongoing preventive follow-up. Routine labs ordered for metabolic and lipid screening. Patient educated on healthy lifestyle and agrees with the plan. Plan I discussed with the patient that overall he appears very healthy. We reviewed his recent labs, noting the elevated LDL cholesterol of 124, and I explained that while he is too young for medication, it is important to manage this through diet by avoiding processed foods, butters, cheese, and red meats. We karissa l monitor this annually. We discussed the finding of trace blood in his urine, and I explained that this is a concern that requires further investigation. I informed him that while it could be related to something simple like a kidney stone, we must rule out more serious issues. I ordered a formal urinalysis to be done today and advised that if blood is confirmed, he will need a referral to a urologist. I recommended he continue his current inhalers and let us know if he needs refills. We discussed his need for the Hepatitis B vaccine, and I instructed him to go to [facility] to get the series started. I will place an order for screening labs for thyroid function and diabetes, and he should follow up for his yearly physical whenever he is able. Orders: Orders UA CC w/rflx Micro + Cult Today R31.9 - Hematuria, unspecified Patient Instructions: - Go to the lab across the [place] today to provide a urine sample to check for blood in your urine. - Go to [facility] to get your Hepatitis B vaccine series. - Continue to take your Asthmanex inhaler every morning and use your albuterol inhaler as needed. Let us know if you need refills. - To help lower your cholesterol, try to reduce your intake of processed foods, butter, cheese, and red meats. - Schedule your next yearly physical in about a year.
[2025-05-11 10:40] VITALS: BP 110/76; PULSE 76; RESP 16; TEMP 36.6; O2SAT 98; BMI 27.1
== END 2025-05-11 11:03 | disposition home or self-care (01) ==
LOC: HO.HMCHD 10:35
PROVIDERS: PCP Nurse Practitioner Family; Visit Provider Student in an Organized Health Care Education/Training Program
DX: Z00.00 Encounter for general adult medical examination without abnormal findings (principal); J45.909 Unspecified asthma, uncomplicated; E78.00 Pure hypercholesterolemia, unspecified; R31.9 Hematuria, unspecified

== ENCOUNTER 2025-05-11 10:34 | Outpatient (REF) | payer BC, SELFPAY ==
[2025-05-11 11:53] LABS: Appearance Urine Clear; Glucose Urine UA Negative (Negative); PH 6.0 (5.0-9.0); Specific Gravity - Urine 1.025 (1.005-1.025)
== END 2025-05-11 10:35 | disposition home or self-care (01) ==
LOC: HO.LAB 10:34
PROVIDERS: PCP Student in an Organized Health Care Education/Training Program; Visit Provider Student in an Organized Health Care Education/Training Program
DX: R31.9 Hematuria, unspecified (principal); J45.909 Unspecified asthma, uncomplicated; E78.00 Pure hypercholesterolemia, unspecified
CPT/HCPCS: 81003; 96127